=== PATIENT | male | born 1950 | race Asian ===

== ENCOUNTER 2024-06-21 06:13 | Day surgery (SDC) | payer OTHER ==
[~2024-06-21] VITALS: Ht 180.3 cm; Wt 70.9 kg
[~2024-06-21 06:13] MED LIST: ATOR20TA65 PO; CLOP75TA32 PO; CYCLOPENTOLATE HCL 1% 2 ML OPHTHALMIC SOLUTION ONE; KETOROLAC TROMETHAMINE 0.5% 5 ML OPHTHALMIC SOLUTION ONE; LOSA-382 PO; MOXIFLOXACIN HCL 0.5% 3 ML OPHTHALMIC SOLUTION ONE; PHENYLEPHRINE HCL 2.5% 2 ML OPHTHALMIC SOLUTION ONE; PROPARACAINE HCL 0.5% 15 ML OPHTHALMIC SOLUTION ONE; RINGERS SOLUTION,LACTATED 500 ML IV ONE; TAMS0.4C94 PO; TETRACAINE HCL/PF 0.5% 4 ML OPHTHALMIC SOLUTION ONE; TROPICAMIDE 1% 2 ML OPHTHALMIC SOLUTION ONE
[2024-06-21] MEDS ORDERED: CHONDR SULF A SOD/HYALURONATE 1.05 ML KIT IO ONE (06:14)
[2024-06-21] MEDS ORDERED: NEOMYCIN/POLYMYXIN B/DEXAMETH 3.5 GM OPHTHALMIC OINTMENT OD ONE (06:14)
[2024-06-21] MEDS ORDERED: EPINEPHrine 1:1,000 [1 MG/ML] VIAL IM ONE (06:14)
[2024-06-21] MEDS ORDERED: PrednisoLONE ACETATE 1% 5 ML OPHTHALMIC SUSPENSION OD ONE (06:14)
[2024-06-21] MEDS ORDERED: BALANCED SALT 15 ML OPHTHALMIC IRRIG.SOLN OD ONE (06:14)
[2024-06-21] MEDS ORDERED: FentaNYL CITRATE PF 100 MCG/2 ML VIAL IVP ONE (06:14)
[2024-06-21] MEDS ORDERED: HYALURONATE SOD/CHONDROITIN SOD 0.5 ML VIAL IO ONE (06:14)
[2024-06-21] MEDS ORDERED: MIDAZOLAM HCL 2 MG/2 ML VIAL IVP ONE (06:14)
[2024-06-21] MEDS: PROPARACAINE HCL 0.5% 15 ML OPHTHALMIC SOLUTION OD ONE (07:04)
[2024-06-21] MEDS: KETOROLAC TROMETHAMINE 0.5% 5 ML OPHTHALMIC SOLUTION OD SCH (07:05)
[2024-06-21] MEDS: PHENYLEPHRINE HCL 2.5% 2 ML OPHTHALMIC SOLUTION OD SCH (07:07)
[2024-06-21] MEDS: CYCLOPENTOLATE HCL 1% 2 ML OPHTHALMIC SOLUTION OD SCH (07:07)
[2024-06-21] MEDS: TROPICAMIDE 1% 2 ML OPHTHALMIC SOLUTION OD SCH (07:07)
[2024-06-21] MEDS: TETRACAINE HCL/PF 0.5% 4 ML OPHTHALMIC SOLUTION OD SCH (07:07)
[2024-06-21] MEDS: MOXIFLOXACIN HCL 0.5% 3 ML OPHTHALMIC SOLUTION OD SCH (07:08)
[2024-06-21] MEDS: RINGERS SOLUTION,LACTATED 500 ML IV ONE (07:21)
[2024-06-21] MEDS ORDERED: BALANCED SALT 15 ML OPHTHALMIC IRRIG.SOLN ONE (07:32)
[2024-06-21] MEDS ORDERED: POVIDONE-IODINE 5% 30 ML OPHTHALMIC SOLUTION ONE (07:32)
[2024-06-21] MEDS ORDERED: EPINEPHrine 1:1,000 [1 MG/ML] VIAL ONE (07:33)
[2024-06-21] MEDS ORDERED: LIDOCAINE/PF 1% 2 ML VIAL ONE (07:34)
[2024-06-21] MEDS ORDERED: NEOMYCIN/POLYMYXIN B/DEXAMETH 3.5 GM OPHTHALMIC OINTMENT ONE (07:35)
[2024-06-21] MEDS ORDERED: PrednisoLONE ACETATE 1% 5 ML OPHTHALMIC SUSPENSION ONE (07:48)
== END 2024-06-21 11:20 | disposition home or self-care (01) ==
LOC: SURGERY 06:13
PROVIDERS: ATTEND Ophthalmology
DX: H25.11 Age-related nuclear cataract, right eye (principal); I10 Essential (primary) hypertension; E78.00 Pure hypercholesterolemia, unspecified; Z79.899 Other long term (current) drug therapy; Z98.890 Other specified postprocedural states; Z91.013 Allergy to seafood
CPT/HCPCS: 66984; 93005; J7321; J0171; J3010; J3490; J2250; J7120; V2632